=== PATIENT | female | born 1985 | race American Indian/Alaskan Native ===

== ENCOUNTER 2021-09-25 15:13 | Emergency (ER) | payer MEDICAID ==
[2021-09-25] MEDS ORDERED: MORPHINE 2 MG/1 ML INJ IV ONE (16:55)
[2021-09-25] MEDS ORDERED: SODIUM CHLORIDE 0.9% 1000 ML 1,000 ML IV ONE (16:55)
[2021-09-25] MEDS ORDERED: ONDANSETRON 4 MG/2 ML INJ IV ONE (16:55)
--- NOTE | 2021-09-25 17:00 | Emergency Department Report ---
ED Abdominal Pain HPI - General Chief Complaint: Abdominal Pain Stated Complaint: ABD PAIN/CERVIX PAIN Time Seen by Provider: 09/25/21 16:24 Source: patient Mode of arrival: Ambulatory Limitations: No Limitations - History of Present Illness Initial Comments: 26-year-old female presents with suprapubic abdominal pain that started 3 days ago progressively getting worse. Patient reported last menstrual 22 August and lasted for 5 days. No fever or chills. Pt denies any vagina discharge or bleeding. No fever or chills reported but noted dysuria. No other modifying or associated factors reported. - Related Data Previous Rx's Medication Instructions Recorded Last Taken Type Vit-Fe Fumar-FA [ 1 tab PO QDAY 90 Days #120 tablet 09/26/21 Unknown Rx Vitamin] Allergies Allergy/AdvReac Type Severity Reaction Status Date / Time No Known Allergies Allergy Verified 06/23/19 12:59 ED Review of Systems ROS: Stated complaint: ABD PAIN/CERVIX PAIN Other details as noted in HPI Comment: All other systems reviewed and negative Gastrointestinal: abdominal pain, nausea. denies: vomiting Genitourinary: dysuria ED Past Medical Hx - Past Medical History Previous Medical History?: Yes Hx Hypertension: No Hx CVA: No Hx Congestive Heart Failure: No Hx Diabetes: No Hx Deep Vein Thrombosis: No Hx Renal Disease: No Hx Sickle Cell Disease: Yes (Trait only) Hx Arthritis: No Hx Headaches / Migraines: Yes (Migraines) Hx Seizures: No Hx Asthma: No Hx COPD: No Hx HIV: No Additional medical history: abnormal cervical cells, heart palpitations - Surgical History Past Surgical History?: Yes Hx Pacemaker: No Additional Surgical History: cervical procedure for abnormal cervical cells - Social History Smoking Status: Never Smoker Substance Use Type: None - Medications Home Medications: Home Medications Medication Instructions Recorded Confirmed Last Taken Type Vit-Fe Fumar-FA [ 1 tab PO QDAY 90 Days #120 tablet 09/26/21 Unknown Rx Vitamin] ED Physical Exam - General Limitations: No Limitations General appearance: alert, in distress (due to suprapubic pain ) - Head Head exam: Present: normal inspection - Eye Eye exam: Present: normal appearance - ENT ENT exam: Present: normal exam, normal orophraynx, mucous membranes moist - Neck Neck exam: Present: normal inspection, full ROM. Absent: tenderness - Respiratory Respiratory exam: Present: normal lung sounds bilaterally. Absent: respiratory distress - Cardiovascular Cardiovascular Exam: Present: regular rate, normal rhythm, normal heart sounds - GI/Abdominal GI/Abdominal exam: Present: soft, tenderness (Suprapubic tenderness to palpation), guarding, normal bowel sounds - Extremities Exam Extremities exam: Present: normal inspection, full ROM, normal capillary refill. Absent: tenderness - Back Exam Back exam: Present: normal inspection - Neurological Exam Neurological exam: Present: alert - Skin Skin exam: Present: warm, intact, normal color ED Course Vital Signs 09/25/21 09/25/21 15:42 16:29 Temperature 98.1 F 98.1 F Pulse Rate 78 78 Respiratory 18 18 Rate Blood Pressure 125/53 Blood Pressure 125/53 [Right] O2 Sat by Pulse 100 100 Oximetry - Reevaluation(s) Reevaluation #1: 09/25/21 17:02 Here with suprapubic tenderness with likely to be --this is concerning for likely round ligament pull, ectopic , urinary tract infection, and muscle spasm so we will go ahead and check routine labs including CBC, CMP, urinalysis and confirm with hCG urine and serum quant--in the meantime we will go ahead and give 2 mg of morphine, for pain and Zofran for nausea and IV fluids normal saline 1 L bolus for hydration. Reevaluation #2: 09/25/21 20:47 CBC and CMP with urinalysis does not show any sign of infection--signs and symptoms is likely related to --with positive urine hCG and appropriate level of serum beta hCG--we will discharge this patient home on nausea medicine and close follow-up with her [facility] and to start taking vitamins immediately. 09/25/21 23:59 Reevaluation #3: 09/25/21 23:59 Patient ultrasound shows no intrauterine gestational sac which could be because of early gestation--at this point will consult with [facility] who agreed to have patient call his clinic in the morning for appointment to have her Serum hCG quant repeated in 48 hours for comparison. Pt reassured and updated who voice understanding and agreed with the plan. ED Medical Decision Making - Lab Data Result diagrams: 09/25/21 17:27 09/25/21 17:27 Critical care attestation.: If time is entered above; I have spent that time in minutes in the direct care of this critically ill patient, excluding procedure time. ED Disposition Clinical Impression: Abdominal pain affecting , First trimester Disposition: HOME / SELF CARE / HOMELESS Is pt being admited?: No Does the pt Need Aspirin: No Condition: Stable Instructions: Abdominal Pain (ED), and Travel, How a Baby Grows During , and Sex, First Trimester of , [id number] Additional Instructions: It is very important that you call Dr. Tang's office at [phone] tomorrow morning 09/26/21 for an appointment to be seen on Sunday for repeat of your blood level. You can also call your [facility] if you choose to but Dr Tang already aware of your case. It is also okay to take Tylenol every 6-8 hours as needed for pain Please do not hesitate to call or return to emergency room if your symptoms worsen Prescriptions: Vit-Fe Fumar-FA [ Vitamin] 1 tab PO QDAY 90 Days #120 tablet Referrals: JAVIER MELENDEZ III, [employer] [Primary Care Provider] - 3-5 Days Time of Disposition: 00:04
[2021-09-25 17:36] LABS: HCG Qualitative,Urine Positive (Negative)
[2021-09-25 17:39] LABS: Bilirubin,Urine NEG (Negative); Blood,Urine NEG (Negative); Color,Urine Yellow (Yellow); Mucus,Urine FEW /HPF; Protein,Urine <15 mg/dL mg/dL (Negative); WBC,Urine < 1.0 /HPF (0.0-6.0)
[2021-09-25 18:20] LABS: Basophils # (Auto) 0.1 K/mm3 (0.0-0.1); Basophils % (Auto) 1.1 % (0.0-1.8); Eosinophils # (Auto) 0.2 K/mm3 (0.0-0.4); Eosinophils % (Auto) 3.3 % (0.0-4.3); Hematocrit 32.8 % (30.3-42.9); Hemoglobin 10.9 gm/dl (10.1-14.3); Lymphocytes # (Auto) 1.1 K/mm3 (1.2-5.4); Lymphocytes % (Auto) 17.1 % (13.4-35.0); Mean Corpuscular HGB Conc 33 % (30-34); Mean Corpuscular Volume 88 fl (79-97); Monocytes # (Auto) 0.5 K/mm3 (0.0-0.8); Monocytes % (Auto) 7.3 % (0.0-7.3); Platelet Count 225 K/mm3 (140-440); Red Blood Count 3.74 M/mm3 (3.65-5.03); Red Cell Distribution Width 14.9 % (13.2-15.2)
[2021-09-25 18:40] LABS: Alanine Aminotransferase 12 units/L (7-56); Albumin 3.9 g/dL (3.9-5); BUN/Creatinine Ratio 10; Blood Urea Nitrogen 9 mg/dL (7-17); Calcium 8.7 mg/dL (8.4-10.2); Hemolysis Index 5
--- NOTE | 2021-09-25 22:48 | Ultrasound Report ---
Obstetrical ultrasound first trimester INDICATION: Abdominal pain with FINDINGS: The uterus measures 10 x 5 x 6 cm. Endometrial thickness is 4 mm. No intrauterine . Both ovaries contain multiple follicles but are otherwise unremarkable IMPRESSION: No intrauterine identified. Signer Name: Kade Clifford MD Signed: 09/25/2021 10:43 PM Workstation Name: [facility]
[2021-09-26 00:16] VITALS: BP 140/43
== END 2021-09-26 00:16 | disposition home or self-care (01) ==
LOC: ED 15:13
DX: O26.891 Other specified pregnancy related conditions, first trimester (principal); R10.9 Unspecified abdominal pain; Z3A.01 Less than 8 weeks gestation of pregnancy; D57.1 Sickle-cell disease without crisis; G43.909 Migraine, unspecified, not intractable, without status migrainosus; Z98.890 Other specified postprocedural states; Z79.899 Other long term (current) drug therapy
CPT/HCPCS: 36415; 76801; 80053; 81001; 81025; 84702; 85025; 96361; 96374; 96375; 99284; J2270; J2405; J7030; Q0162